=== PATIENT | male | born 1950 | race Caucasian/White ===

== ENCOUNTER 2018-01-02 08:27 | Emergency (ER) | payer MEDICARE, BC ==
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
[2018-01-02] MEDS ORDERED: Diphtheria,Pertussis(Acell),Tetanus Vaccine 0.5 ML SDV IM ONE (09:03)
== END 2018-01-02 09:26 | disposition home or self-care (01) ==
LOC: JD.ED 08:27
DX: S00.03XA Contusion of scalp, initial encounter (principal); S40.211A Abrasion of right shoulder, initial encounter; S09.90XA Unspecified injury of head, initial encounter; W01.0XXA Fall on same level from slipping, tripping and stumbling without subsequent striking against object, initial encounter; Z23 Encounter for immunization; Z88.0 Allergy status to penicillin; Z79.82 Long term (current) use of aspirin
CPT/HCPCS: 90471; 90715; 99284-25